=== PATIENT | male | born 1995 | race Caucasian/White ===

== ENCOUNTER 2020-07-08 12:30 | Emergency (ER) | payer MEDICAID ==
[~2020-07-08] VITALS: Ht 193 cm; Wt 82.0 kg
[2020-07-08 12:39] VITALS: BP 173/77
--- NOTE | 2020-07-08 13:59 | NUR ---
Patient given discharge instructions and they have confirmed that they understand the instructions. Perscription given with instructions, pt verbalizes understanding. Patient ambulatory with steady gait.
== END 2020-07-08 14:00 | disposition home or self-care (01) ==
LOC: ED 12:55
DX: S80.821A Blister (nonthermal), right lower leg, initial encounter (principal); Z76.0 Encounter for issue of repeat prescription; X58.XXXA Exposure to other specified factors, initial encounter; Y93.89 Activity, other specified; Y92.89 Other specified places as the place of occurrence of the external cause; Y99.8 Other external cause status
CPT/HCPCS: 99281

== ENCOUNTER 2020-10-27 23:28 | Emergency (ER) | payer MEDICAID ==
[~2020-10-27] VITALS: Ht 193 cm; Wt 70.0 kg
[2020-10-27] MEDS ORDERED: LORazepam 1MG TABLET ONE (23:39)
[2020-10-27] MEDS ORDERED: OLANZAPINE 5 MG TABLET ONE (23:39)
--- NOTE | 2020-10-27 23:49 | NUR ---
Patient medicated per MAR.
[2020-10-28] MEDS ORDERED: LORazepam 1MG TABLET PO ONE
[2020-10-28] MEDS ORDERED: OLANZAPINE 5 MG TABLET PO ONE
--- NOTE | 2020-10-28 01:05 | NUR ---
Patient noted to be resting, typewriter assembler attempted to obtain vital signs. Unable to obtain b/p d/t patient moving arm all over and stating that it hurt. Provider aware.
--- NOTE | 2020-10-28 04:13 | NUR ---
pt asleep and wakes up with verbal awakening. to be d/c'd when he's awake and able to understand d/c instructions. no distress at this time. airway patent. good aeration and oxygenation.
--- NOTE | 2020-10-28 05:26 | NUR ---
attempted to wake pt up, and he is beligerant and makes noises and just flails about until we stop asking him to wake up. MD aware, as pt has refused vital signs and blood pressure up until now. pt to be d/c'd.
--- NOTE | 2020-10-28 06:05 | NUR ---
attempted to wake pt up again, and still refuses, and is beligerant and won't open eyes or comply. remains on cr monitor, and bp cuff. airway patent, good aeration and oxygenation.
--- NOTE | 2020-10-28 06:56 | NUR ---
report and care to sarahi SALINAS.
--- NOTE | 2020-10-28 08:01 | NUR ---
stood pt at bedside. pt unsteady and tremulous at this time. will cont to monitor
--- NOTE | 2020-10-28 09:32 | NUR ---
REPORT FROM IBIS RN WITH ASSESSMENT PATIENT STILL UNABLE TO STAND/EAT OF DRINK NOR TALK WILL ALLOW TO REST THEN RE-EVALUATE
--- NOTE | 2020-10-28 09:51 | NUR ---
REPORT FROM MALACHI SALINAS.
--- NOTE | 2020-10-28 09:56 | NUR ---
REPORT TO XAVIER SALINAS
[2020-10-28 12:00] VITALS: BP 133/73
== END 2020-10-28 12:03 | disposition home or self-care (01) ==
LOC: ED 10-28 09:30
DX: F15.950 Other stimulant use, unspecified with stimulant-induced psychotic disorder with delusions (principal); F41.1 Generalized anxiety disorder; F44.9 Dissociative and conversion disorder, unspecified; Z72.9 Problem related to lifestyle, unspecified
CPT/HCPCS: 99285

== ENCOUNTER 2020-12-03 04:54 | Emergency (ER) | payer MEDICAID ==
[~2020-12-03] VITALS: Ht 195.6 cm; Wt 76.7 kg
[2020-12-03 04:59] VITALS: BP 136/88
--- NOTE | 2020-12-03 05:05 | NUR ---
pt ambulated steady to room
--- NOTE | 2020-12-03 05:09 | NUR ---
erp at bedside
== END 2020-12-03 05:42 | disposition home or self-care (01) ==
LOC: ED 05:24
DX: R56.9 Unspecified convulsions (principal); Z76.0 Encounter for issue of repeat prescription; Z87.891 Personal history of nicotine dependence; Z88.8 Allergy status to other drugs, medicaments and biological substances
CPT/HCPCS: 99281

== ENCOUNTER 2021-02-10 15:50 | Emergency (ER) | payer MEDICAID ==
[~2021-02-10] VITALS: Ht 193 cm; Wt 83.0 kg
[2021-02-10 15:54] VITALS: BP 131/86
--- NOTE | 2021-02-10 15:56 | NUR ---
ERPA AT BEDSIDE FOR EVALUATION.
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
--- NOTE | 2021-02-10 16:36 | NUR ---
PATIENT TO CT SCAN.
--- NOTE | 2021-02-10 16:57 | NUR ---
PATIENT BACK TO ROOM, DRESSED IN CLOTHES, ALL MONITORS OFF, PACING AROUND. WAITING FOR CT RESULTS.
--- NOTE | 2021-02-10 17:27 | NUR ---
ERMD AT BEDSIDE TO DISCUSS POC AND DISCHARGE.
--- NOTE | 2021-02-10 17:33 | NUR ---
Patient given discharge instructions and they have confirmed that they understand the instructions. Patient stable and ambulatory with steady gait from ED.
== END 2021-02-10 17:34 | disposition home or self-care (01) ==
LOC: ED 16:03
DX: S00.33XA Contusion of nose, initial encounter (principal); F10.129 Alcohol abuse with intoxication, unspecified; F15.129 Other stimulant abuse with intoxication, unspecified; E03.9 Hypothyroidism, unspecified; G40.909 Epilepsy, unspecified, not intractable, without status epilepticus; Y04.8XXA Assault by other bodily force, initial encounter; Y93.89 Activity, other specified; Y92.410 Unspecified street and highway as the place of occurrence of the external cause; Y99.8 Other external cause status; Y90.0 Blood alcohol level of less than 20 mg/100 ml
CPT/HCPCS: 70450; 70486; 99285

== ENCOUNTER 2021-06-10 20:29 | Emergency (ER) | payer MEDICAID ==
[~2021-06-10] VITALS: Ht 185.4 cm; Wt 81.8 kg
[2021-06-10 21:16] LABS: BASOPHILS % (AUTO) 1 % (0-1); EOSINOPHILS % (AUTO) 3 % (1-7); LYMPHOCYTES % (AUTO) 30 % (22-44); MEAN CORPUSCULAR HEMOGLOBIN 29.5 pg (27.5-34.5); MEAN CORPUSCULAR HGB CONC 34.1 g/dL (33.2-36.2); MEAN PLATELET VOLUME 7.5 fL (7.4-10.4); MONOCYTES % (AUTO) 11 % (2-9); NEUTROPHILS % (AUTO) 56 % (42-75); PLATELET COUNT 366 x10^3/uL (130-400); RED BLOOD COUNT 4.56 x10^6/uL (4.38-5.82); RED CELL DISTRIBUTION WIDTH 14.6 % (9.4-14.8)
--- NOTE | 2021-06-10 21:20 | NUR ---
given food. sitter in place. as
[2021-06-10 21:23] LABS: CHLORIDE 103 mmol/L (98-107)
[2021-06-10] MEDS ORDERED: LORazepam 1MG TABLET ONE (21:24)
[2021-06-10 21:28] LABS: ALBUMIN 3.7 g/dL (3.4-5.0); ANION GAP 6 mmol/L (5-15); CALCIUM 9.1 mg/dL (8.5-10.1); CREATININE 0.76 mg/dL (0.7-1.3)
[2021-06-10] MEDS ORDERED: LORazepam 1MG TABLET PO ONE (21:30)
[2021-06-10] MEDS ORDERED: VALPROIC ACID 250 MG CAPSULE PO ONE (21:30)
[2021-06-10 21:31] LABS: SALICYLATE LEVEL < 1.7 mg/dL (2.8-20.0)
--- NOTE | 2021-06-10 23:51 | NUR ---
pt resting in bed, unable to provide ua at this time, aware of needed sample.
--- NOTE | 2021-06-11 01:16 | NUR ---
pt sleeping on gurney, resps even and unlabored, nadn.
--- NOTE | 2021-06-11 02:23 | NUR ---
attempt to wake pt up and MTF x1, pt unable to get up at this time. FELICITA, jacoby.
--- NOTE | 2021-06-11 02:50 | NUR ---
Report received from RITA Duran. This RN to assume care. Patient sleeping in [facility]. Respirations even and unlabored. Not ready for d/c at this time.
--- NOTE | 2021-06-11 03:34 | NUR ---
Discharge instructions given. All questions and concerns addressed. Patient ambulatory with a steady gait. Belongings with patient.
== END 2021-06-11 03:36 | disposition home or self-care (01) ==
LOC: ED 23:59
DX: F33.9 Major depressive disorder, recurrent, unspecified (principal); F15.10 Other stimulant abuse, uncomplicated; E03.9 Hypothyroidism, unspecified; G40.909 Epilepsy, unspecified, not intractable, without status epilepticus; F17.200 Nicotine dependence, unspecified, uncomplicated
CPT/HCPCS: 36415; 80048; 80299; 80320; 80329; 82040; 85025; 99283; G0480